=== PATIENT | male | born 1970 | race Two or more races ===

== ENCOUNTER 2025-02-10 15:12 | Emergency (ER) | payer MEDICAID, SELFPAY ==
[2025-02-10 15:13] VITALS: BMI 27.3
[2025-02-10 15:20] VITALS: BP 158/84; PULSE 72; RESP 18; TEMP 36.7; O2SAT 95
--- NOTE | 2025-02-10 15:32 | XR_ITS ---
EXAMINATION: Testicular sonography complete TECHNIQUE: Grayscale sonographic images testes, assessment arterial inflow and venous outflow Doppler spectral analysis and color flow analysis Date and time: February 10, 2025, 1551 hours INDICATIONS: Left testicular pain and swelling beginning 8 months ago. FINDINGS: Right testis 4.9 cm epididymis 11 mm Arterial flow to the testicle. No testicular mass Left testis 5.0 cm epididymis not visualized Arterial flow to the testicle. No testicular mass Large left hydrocele IMPRESSION: No testicular torsion or testicular mass Very large left hydrocele
--- NOTE | 2025-02-10 15:32 | XR_ITS ---
EXAMINATION: PA lateral chest 2 views TECHNIQUE: Upright PA and lateral chest 2 views Date and time: February 10, 2025, 1617 hours COMPARISON: May 08, 2012 INDICATIONS: Lower chest pain today. FINDINGS: Normal heart size. No pneumonia or pulmonary edema Significant hyperexpansion with increased AP dimension chest Prominent osteopenia with chronic osteoporotic compressions T7 and T6 No acute thoracic fracture IMPRESSION: COPD No pneumonia or pulmonary edema
--- NOTE | 2025-02-10 15:32 | EDRME_ITS ---
Rapid Medical Screening Exam [facility] Arrival date/time: 02/10/25 15:12 54-year-old male presents to the emergency room with a chief complaint of left testicular swelling x 8 months I have greeted and performed a focused initial assessment of this patient. A comprehensive ED assessment and evaluation of the patient, analysis of all test results, and completion of the medical decision making process will be conducted by additional ED providers. Chief Complaint: Urogenital-Male Time Seen by Provider: 02/10/25 15:24 Vital signs: Vital Signs Temperature 98.0 F 02/10/25 15:20 Pulse Rate 72 02/10/25 15:20 Respiratory Rate 18 02/10/25 15:20 Blood Pressure 158/84 H 02/10/25 15:20 Pulse Oximetry (%) 95 02/10/25 15:20 Oxygen Delivery Method Room Air 02/10/25 15:20 Vital signs reviewed by provider: Yes Exam: Left testicular swelling Soft nontender abdomen Clear bilateral lung sounds Strong and regular rhythm S1 and S2 noted Clinical Impression: Congestive heart failure/acute kidney failure/renal failure/epididymitis/
--- NOTE | 2025-02-10 15:32 | EKG_ITS ---
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
[2025-02-10 16:05] LABS: Basophils # (Auto) 0.1 Thou/mm3 (0.0-0.2); Basophils % (Auto) 1 % (0-2.5); Eosinophils # (Auto) 0.1 Thou/mm3 (0.0-0.5); Eosinophils % (Auto) 2 % (0-10); Hematocrit 40.3 % (41.0-53.0); Hemoglobin 14.1 g/dL (13.5-16.0); Immature Granulocytes Auto 0.05 Thou/mm3 (0.00-0.00); Lymphocytes # (Auto) 1.6 Thou/mm3 (1.0-4.8); Lymphocytes % (Auto) 25 % (10-50); Mean Corpuscular HGB Conc 35.0 g/dl (31.0-37.0); Mean Corpuscular Hemoglobin 32.6 pg (25.0-35.0); Mean Corpuscular Volume 93 fL (80-100); Monocytes # (Auto) 0.4 Thou/mm3 (0.0-0.8); Monocytes % (Auto) 6 % (0-12); Neutrophils # (Auto) 4.2 Thou/mm3 (1.8-7.7); Neutrophils % (Auto) 65 % (37-80); Nucleated Red Blood Cell # 0.00 Thou/mm3 (0.00-0.00); Nucleated Red Blood Cell % 0 /100 WBC (0); Platelet Count 170 Thou/mm3 (140-440); RDW Standard Deviation 47.8 fL (35.1-43.9); Red Blood Count 4.32 Miln/mm3 (4.50-5.90); White Blood Count 6.4 Thou/mm3 (3.8-10.6)
[2025-02-10 16:23] LABS: INR 1.1 (0.9-1.3); Partial Thromboplastin Time 29.4 Seconds (22.0-36.0); Prothrombin Time 11.2 Seconds (9.0-12.2)
[2025-02-10 16:24] LABS: B-Type Natriuretic Peptide 34 pg/mL (0-100)
[2025-02-10 16:31] LABS: Alanine Aminotransferase 10 U/L (10-49); Albumin, Serum 4.6 gm/dL (3.5-5.0); Albumin/Globulin Ratio 1.9 (1.2-2.2); Alkaline Phosphatase 111 U/L (46-116); Anion Gap 9 (7-16); Aspartate Amino Transferase 27 U/L (0-34); BUN/Creatinine Ratio 9 Ratio (12-20); Bilirubin,Total 0.9 mg/dL (0.3-1.2); Blood Urea Nitrogen 7 mg/dL (9-23); Calcium 8.7 mg/dL (8.3-10.6); Calcium (Corrected) 8.7 mg/dL (8.5-10.1); Carbon Dioxide 25.7 mMol/L (20.0-31.0); Chloride 107 mMol/L (98-107); Creatinine (Component) 0.8 mg/dL (0.6-1.3); Estimated Creatinine Clearance 109.1 mL/min (>60); Globulin 2.4 gm/dL (2.3-3.5); Glucose 89 mg/dL (74-106); Magnesium 1.8 mg/dL (1.6-2.6); Osmolality,Calculated 280 (275-295); Potassium 4.0 mMol/L (3.4-5.1); Sodium 142 mMol/L (136-145); Total Protein 7.0 gm/dL (5.7-8.2); Troponin I < 0.002 ng/mL (0.0-0.045); eGFR > 60 See Note
[2025-02-10 16:40] LABS: Collection Type, Urine Clean Catch; Squamous Epithelial Cell,Urine 0 /hpf (0-5)
[2025-02-10 16:52] LABS: Amphetamine/Methamp Scrn,U Negative (Negative); Barbiturate Screen,Urine Negative (Negative); Benzodiazepines Screen,Urine Negative (Negative); Benzoylecgonine Screen, Ur Negative (Negative); Fentanyl Screen,Urine Negative (Negative); Opiate Screen,Urine Negative (Negative); THC Screen,Urine Positive (Negative)
[2025-02-10 16:53] LABS: Bacteria,Urine Rare; Bilirubin,Urine Negative (Negative); Blood,Urine Negative (Negative); Clarity,Urine Clear (Clear/Hazy); Color,Urine Lt-Yellow (Lt Yel-Yel); Culture Indicated,Urine Not Indicated; Glucose, Urine Negative (Negative); Ketones,Urine Negative (Negative); Leukocyte Esterase,Urine Negative (Negative); Nitrite,Urine Negative (Negative); PH,Urine 7.5 (5.0-7.0); Protein,Urine Negative (Neg - Trace); RBC,Urine < 1 /hpf (0-3); Specific Gravity,Urine 1.009 (1.001-1.035); Urobilinogen,Urine 2.0 mg/dL (0.0-1.0); WBC,Urine < 1 /hpf (0-5)
[2025-02-10 17:43] VITALS: BP 156/79; PULSE 67; RESP 18; TEMP 37.2; O2SAT 100
[2025-02-10 18:58] VITALS: BP 156/79; PULSE 58; RESP 20; O2SAT 100
--- NOTE | 2025-02-10 20:09 | PC.NURSE ---
pt was given a sandwich, juice, and chips
[2025-02-10 20:16] VITALS: BP 125/78; PULSE 71; RESP 20; TEMP 36.9; O2SAT 98
--- NOTE | 2025-02-10 20:42 | EDNOTE_ITS ---
ED Male Genitalurinary RME/HPI General Chief complaint: Urogenital-Male Stated complaint: TESTICLES ENLARGED x 6 MONTHS Time Seen by Provider: 02/10/25 15:24 Arrival date/time: 02/10/25 15:12 RME / HPI RME / HPI Narrative: 02/10/25 15:12 54-year-old male presents to the emergency room with a chief complaint of left testicular swelling x 8 months I have greeted and performed a focused initial assessment of this patient. A comprehensive ED assessment and evaluation of the patient, analysis of all test results, and completion of the medical decision making process will be conducted by additional ED providers. DR. MANLEY MAIN ED EVALUATION: Patient presenting with progressive left testicular swelling for 8 months. Denies any pain or urinary symptoms. PMH: HI, Cirrhosis PSH: Non-contributory. Allergies: None Social: Marijuana, Tobacco, and Alcohol, No illicit drug abuse Exam: Left testicular swelling Soft nontender abdomen Clear bilateral lung sounds Strong and regular rhythm S1 and S2 noted Impression: Congestive heart failure/acute kidney failure/renal failure/epididymitis/ Related Data Previous Rx's ?Medication ?Instructions ?Recorded naproxen 250 mg tablet 250 mg PO BID PRN pain #10 t abs 02/10/25 Allergies Allergy/AdvReac Type Severity Reaction Status Date / Time No Known Allergies Allergy Verified 02/10/25 15:15 Review of Systems Review of Systems Systems Reviewed: All systems reviewed, normal except as documented Past Medical History Past Medical History CARDIAC: Positive Cardiac Disorders and Myocardial Infarction (2016) GASTROINTESTINAL: Positive Gastrointestinal Disorders and Cirrhosis Surgical History SURGICAL: Positive Joint Replacement Social History SMOKING STATUS: Current every day smoker SUBSTANCE USE: marijuana ALCOHOL: Current ED Exam Narrative Physical exam: GEN. APPEARANCE: The patient is alert awake oriented X-3 under no distress, lying down comfortably, does not look ill/toxic. Patient has good eye contact. Patient is cooperative. VITALS: All vitals were reviewed and the pulse ox is 98%, which is normal according to my interpretation HEENT: Normocephalic, atraumatic and nontender. Pupils are equal and reactive. Oral mucosa is moist. NECK: Supple, nontender, no meningismus, no JVD. There is no thyromegaly and no lymphadenopathy. CHEST: Nontender on palpation no deformity and no crepitus. CARDIOVASCULAR: Heart regular rhythm, no murmur or gallop rub or extra beats. LUNGS: Clear to auscultation bilaterally with symmetrical chest rise. No laboring tachypnea or wheezing. No intercostal subcostal retraction. No rales and no rhonchi. ABDOMEN: Soft, flat, nontender to palpation, no guarding or rebound tenderness. There are no abnormal masses palpated. No pulsatile masses or bruits. Active and normal bowel sounds. MALE : Penile shaft retracted, left testicle 4+ enlarged, no overlying scrotal deformity, left teste easily palpable and both downgoing, no maetal discharge noted. EXTREMITIES: Normal inspection and palpation. No edema. No cyanosis. Patient is able to move all 4 extremities well SKIN: Warm and dry, no rashes noted. MUSCULOSKELETAL: No lumbar or midline bony tenderness. There is no CVA tenderness. No paraspinal muscle spasm or tenderness. NEURO: Cranial nerves II through XII grossly intact. There are no focal neurologic deficits noted. GCS is 15 PSYCHIATRIC: Patient is in normal mood and affect, cooperative. LYMPHATICS: No major lymphadenopathy noted. Course Quality Measures none Orders Category Date Time Status EKG (ED ONLY) *Do not use* NOW Care 02/10/25 15:32 Completed EKG (ED Only) Stat Exams 02/10/25 15:32 Draft US testicular Stat Exams 02/10/25 15:32 Completed XR chest 2V Stat Exams 02/10/25 15:32 Completed B-Type Natriuretic Peptide Stat Lab 02/10/25 15:49 Completed CBC Stat Lab 02/10/25 15:49 Completed Comprehensive Metabolic Panel Stat Lab 02/10/25 15:49 Completed Drug Screen,Urine Stat Lab 02/10/25 16:35 Completed Magnesium Stat Lab 02/10/25 15:49 Completed Partial Thromboplastin Time Stat Lab 02/10/25 15:49 Completed Prothrombin Time with INR Stat Lab 02/10/25 15:49 Completed Troponin I Stat Lab 02/10/25 15:49 Completed Urinalysis, C/S if Indicated Stat Lab 02/10/25 16:35 Completed Vital Signs Vital signs: Vital Signs Temperature 98.0 F 02/10/25 15:20 Pulse Rate 72 02/10/25 15:20 Respiratory Rate 18 02/10/25 15:20 Blood Pressure 158/84 H 02/10/25 15:20 Pulse Oximetry (%) 95 02/10/25 15:20 Oxygen Delivery Method Room Air 02/10/25 15:20 Urogenital - Male MDM Narrative MDM Narrative:: Scribe Attestation: I, Lachelle Lipscomb, am scribing for and in the presence of Dr. Manley. Provider Notation: Although this document has been carefully reviewed, there may still be some phonetic and other typographical errors. These errors are purely grammatical due to imperfections in the software program and should not be construed in any way to compromise the substance of the patient's medical care during this visit. Patient presenting with progressive left testicular swelling for 8 months. Denies any pain or urinary symptoms. Please see PE findings. Laboratory markers demonstrate WBC of 6.4, normal hemoglobin and platelet count. Serum chemistries are unremarkable. UA is negative for infection. Toxicology screen is positive for marijuana. Testicular US demonstrates large left hydrocele, no torsion or mass noted. Patient will be referred for routine urology with precautionary instructions issued. Patient data External records reviewed:: [facility] previous records (Reviewed prior ED records from 07/31/20. Patient was seen for Cellulitis.) Clinical information provided by:: patient Social determinants that could affect healthcare access:: substance use (Marijuana, Tobacco) Patient has the following chronic illnesses:: HI, Cirrhosis How is presenting disease/condition affected by chronic disease/condition?: exacerbated by Evaluation data The following diagnostics were reviewed and interpreted by me:: lab results and radiology exam(s) Lab and/or radiology exams considered but not ordered:: None Interpretation Summary: RADIOLOGY Testicular US: FINDINGS: Right testis 4.9 cm epididymis 11 mm Arterial flow to the testicle. No testicular mass Left testis 5.0 cm epididymis not visualized Arterial flow to the testicle. No testicular mass Large left hydrocele IMPRESSION: No testicular torsion or testicular mass Very large left hydrocele Chest X-Ray: FINDINGS: Normal heart size. No pneumonia or pulmonary edema Significant hyperexpansion with increased AP dimension chest Prominent osteopenia with chronic osteoporotic compressions T7 and T6 No acute thoracic fracture IMPRESSION: COPD No pneumonia or pulmonary edema Medications / Prescriptions Medications or Prescriptions considered but not ordered:: None Medication administrations:: See above if any Consultations Consultation(s) initiated? (list below): No Diagnosis Urogenital Male Differential Diagnosis: priapism, epididymitis and other (Orchitis, Testicular Torsion) Most likely diagnosis given after review of the tests above:: Left Hydrocele Admission Indicated Admission indicated?: not indicated Explain why admission is indicated or not indicated:: Patient does not meet admission criteria Admission Request Was there a request for admission?: No Disposition Plan Disposition Plan: Discharge Discharge Attestation Discharge Attestation: The patient and all family members were given an opportunity to ask questions and understood the discharge instructions. Discharge instructions specifically effects, indications for sooner follow up or return to the emergency department, and the expected course of current diagnosis. Patient condition: Stable Discharge Plan Plan Patient Disposition: HOME (Self Care) Prescriptions/Referrals Prescriptions/Med Rec: New naproxen 250 mg tablet 250 mg PO BID PRN (Reason: pain) Qty: 10 0RF Rx Instructions: with food Referrals: Amando Marshall MD [Primary Care Provider, Family Practice] - In 1 week Problem List Clinical Impression: Hydrocele, left Patient/Caregiver Discharge Instructions Education Materials: Hydrocele Surgery (Hydrocelectomy), ED Hydrocele, Type Not Specified Additional Instructions: Recommend follow-up with primary care doctor for referral to see urologist within the next 1 to 2 weeks. Return for fever increasing pain nausea vomiting or worsening symptoms Print Language: [place] Zealander Stand Alone Forms: Mary Award Info., Patient Portal Info Letter
== END 2025-02-10 20:58 | disposition home or self-care (01) ==
PROVIDERS: Nurse Practitioner Family; Emergency Provider Emergency Medicine; PCP Family Medicine
DX: N43.3 Hydrocele, unspecified (principal); I25.2 Old myocardial infarction; I50.9 Heart failure, unspecified; J44.9 Chronic obstructive pulmonary disease, unspecified; K74.60 Unspecified cirrhosis of liver; N45.1 Epididymitis
CPT/HCPCS: 36415; 71046; 76870; 80053; 80307; 81001; 83735; 83880; 84484; 85025; 85610; 85730; 93005; 99283